=== PATIENT | male | born 1985 | race Caucasian/White ===

== ENCOUNTER 2017-11-23 19:14 | Inpatient (IN) | payer BC ==
[2017-11-23] MEDS ORDERED: Ondansetron 4 MG/2 ML SDV IVPUSH ONE (19:55)
[2017-11-23] MEDS ORDERED: Sodium Chloride 0.9% 10 ML Syringe FLUSH PRN (19:55)
[2017-11-23] MEDS ORDERED: Sodium Chloride 0.9% 1,000 ML IV STA (19:55)
[2017-11-23] MEDS ORDERED: Pantoprazole 40 MG Vial IVPUSH ONE (19:57)
[2017-11-23] MEDS: Pantoprazole 80 MG in Sodium Chloride 0.9% 100 ML IV SCH (20:38)
[2017-11-23] MEDS ORDERED: Sodium Chloride 0.9% 1,000 ML IV SCH (21:45)
--- NOTE | 2017-11-23 22:33 | EDM.PDOC ---
ED HPI GENERAL MEDICAL PROBLEM - General Chief Complaint: Neurological Problem Stated Complaint: LIGHT HEADED Time Seen by Provider: 11/23/17 19:49 Source of Information: Reports: Patient History Limitations: Reports: No Limitations - History of Present Illness INITIAL COMMENTS - FREE TEXT/NARRATIVE: The patient presents with nausea, vomiting, diarrhea and lightheadedness. This all started on Thursday with nausea and vomiting. He then had some dark diarrhea. This continued on and off until today. For the past couple days he has been lightheaded especially when he stands up. He had some abdominal pain today. He has never had a GI bleed before. He is healthy with no history of any medical problems. He has no fever, chills, cough, congestion, runny nose, chest pain or shortness of breath. Onset: Gradual Duration: Day(s): (3) Location: Reports: Abdomen Quality: Reports: Other (cramping) Severity: Mild Improves with: Reports: None Worsens with: Reports: None Associated Symptoms: Reports: Nausea/Vomiting, Weakness. Denies: Confusion, Chest Pain, Cough, Fever/Chills, Headaches, Shortness of Breath - Related Data Allergies Allergy/AdvReac Type Severity Reaction Status Date / Time codeine Allergy Rash Verified 11/23/17 20:29 ED ROS GENERAL - Review of Systems Review Of Systems: See Below Constitutional: Reports: No Symptoms HEENT: Reports: No Symptoms Respiratory: Reports: No Symptoms Cardiovascular: Reports: Lightheadedness. Denies: Chest Pain Endocrine: Reports: No Symptoms GI/Abdominal: Reports: No Symptoms : Reports: No Symptoms Musculoskeletal: Reports: No Symptoms ED EXAM, NEURO - Physical Exam Exam: See Below Exam Limited By: No Limitations General Appearance: Alert, No Apparent Distress Ears: Normal External Exam Nose: Normal Inspection Head Exam: Atraumatic, Normocephalic Neck: Normal Inspection Respiratory/Chest: No Respiratory Distress, Lungs Clear, Normal Breath Sounds Cardiovascular: No Edema, No Murmur, Tachycardia GI/Abdominal: Soft, Non-Tender, No Organomegaly, No Mass Rectal (Males) Exam: Black Stool, Heme + Stool Neurological: Alert, No Motor/Sensory Deficits, Oriented x 3 Course - Vital Signs Last Recorded V/S: Last Vital Signs Temp 98.6 F 11/23/17 19:39 Pulse 120 H 11/23/17 19:39 Resp BP 148/93 H 11/23/17 19:39 Pulse Ox 98 11/23/17 19:39 - Orders/Labs/Meds Orders: Active Orders 24 hr Category Date Time Status Peripheral IV Care [RC] . DIRECTED Care 11/23/17 19:56 Active Abdomen Pelvis w Cont [CT] Stat Exams 11/23/17 19:55 Taken UA W/MICROSCOPIC [URIN] Stat Lab 11/23/17 22:46 Ordered Pantoprazole [ProTONIX IV] 80 mg Med 11/23/17 20:00 Active Sodium Chloride 0.9% [Normal Saline] 100 ml IV Q10H Sodium Chloride 0.9% [Normal Saline] 1,000 ml Med 11/23/17 21:45 Active IV ASDIRECTED Sodium Chloride 0.9% [Saline Flush] Med 11/23/17 19:55 Active 10 ml FLUSH ASDIRECTED PRN ED Antiemetic Medication Reflex [OM.PC] Stat Oth 11/23/17 19:56 Ordered Peripheral IV Insertion Adult [OM.PC] Stat Oth 11/23/17 19:55 Ordered Medication Orders Pantoprazole Sodium 80 mg/ (Sodium Chloride) 100 mls @ 10 mls/hr IV Q10H [facility] Last Admin: 11/23/17 20:38 Dose: 10 mls/hr Sodium Chloride (Normal Saline) 1,000 mls @ 100 mls/hr IV ASDIRECTED JAH Last Admin: 11/23/17 21:39 Dose: 100 mls/hr Sodium Chloride (Saline Flush) 10 ml FLUSH ASDIRECTED PRN PRN Reason: Keep Vein Open Last Admin: 11/23/17 21:06 Dose: 10 ml Labs: Laboratory Tests 11/23/17 11/23/17 11/23/17 Range/Units 20:10 20:10 22:46 WBC 7.72 (4.23-9.07) K/mm3 RBC 2.65 L (4.63-6.08) M/mm3 Hgb 8.7 L (13.7-17.5) gm/L Hct 24.7 L (40.1-51.0) % MCV 93.2 H (79.0-92.2) fl MCH 32.8 H (25.7-32.2) pg MCHC 35.2 (32.2-35.5) g/dl RDW Std Deviation 38.6 (35.1-43.9) fL Plt Count 275 (163-337) K/mm3 MPV 9.3 L (9.4-12.3) fl Neut % (Auto) 55.3 (34.0-67.9) % Lymph % (Auto) 35.5 (21.8-53.1) % [place] % (Auto) 7.5 (5.3-12.2) % Eos % (Auto) 1.4 (0.8-7.0) Baso % (Auto) 0.3 (0.1-1.2) % Neut # (Auto) 4.27 (1.78-5.38) K/mm3 Lymph # (Auto) 2.74 (1.32-3.57) K/mm3 [place] # (Auto) 0.58 (0.30-0.82) K/mm3 Eos # (Auto) 0.11 (0.04-0.54) K/mm3 Baso # (Auto) 0.02 (0.01-0.08) K/mm3 Sodium 139 (136-145) mEq/L Potassium 3.3 L (3.5-5.1) mEq/L Chloride 105 (98-107) mEq/L Carbon Dioxide 25 (21-32) mEq/L Anion Gap 12.3 (5-15) BUN 17 (7-18) mg/dL Creatinine 1.1 (0.7-1.3) mg/dL Est Cr Clr Drug Dosing 102.68 mL/min Estimated GFR (MDRD) > 60 (>60) mL/min BUN/Creatinine Ratio 15.5 (14-18) Glucose 123 H (74-106) mg/dL Calcium 8.4 L (8.5-10.1) mg/dL Total Bilirubin 0.2 (0.2-1.0) mg/dL AST 29 (15-37) U/L ALT 42 (16-63) U/L Alkaline Phosphatase 41 L (46-116) U/L Total Protein 6.3 L (6.4-8.2) g/dl Albumin 3.5 (3.4-5.0) g/dl Globulin 2.8 gm/dL Albumin/Globulin Ratio 1.3 (1-2) Lipase 198 (73-393) U/L Urine Color Light yellow (Yellow) Urine Appearance Clear (Clear) Urine pH 6.0 (5.0-8.0) Ur Specific [place] 1.010 (1.005-1.030) Urine Protein Negative (Negative) Urine Glucose (UA) Negative (Negative) Urine Ketones Negative (Negative) Urine Occult Blood Negative (Negative) Urine Nitrite Negative (Negative) Urine Bilirubin Negative (Negative) Urine Urobilinogen 0.2 (0.2-1.0) Ur Leukocyte Esterase Negative (Negative) Urine RBC 0-5 (0-5) /hpf Urine WBC 0-5 (0-5) /hpf Ur Epithelial Cells Not seen (0-5) /hpf Urine Bacteria Occasional (FEW) /hpf Urine Mucus Not seen (FEW) /hpf Meds: Medications Generic Name Dose Route Start Last Admin Trade Name Freq PRN Reason Stop Dose Admin Pantoprazole Sodium 80 mg/ 100 mls @ 10 mls/hr 11/23/17 20:00 11/23/17 20:38 Sodium Chloride IV 10 mls/hr Q10H JAH Administration Sodium Chloride 1,000 mls @ 100 mls/hr 11/23/17 21:45 11/23/17 21:39 Normal Saline IV 100 mls/hr ASDIRECTED JAH Administration Sodium Chloride 10 ml 11/23/17 19:55 11/23/17 21:06 Saline Flush FLUSH 10 ml ASDIRECTED PRN Administration Keep Vein Open Discontinued Medications Generic Name Dose Route Start Last Admin Trade Name Isidra PRN Reason Stop Dose Admin Sodium Chloride 1,000 mls @ 1,000 mls/hr 11/23/17 19:55 11/23/17 20:25 Normal Saline IV 11/23/17 20:54 1,000 mls/hr .BOLUS STA Administration Ondansetron HCl 4 mg 11/23/17 19:55 11/23/17 20:25 Zofran IVPUSH 11/23/17 19:56 4 mg ONETIME ONE Administration Pantoprazole Sodium 80 mg 11/23/17 19:57 11/23/17 20:27 Protonix Iv IVPUSH 11/23/17 19:58 80 mg .BOLUS ONE Administration - Re-Assessments/Exams Free Text/Narrative Re-Assessment/Exam: 11/23/17 22:32 I ordered an IV NS 1L bolus, zofran 4mg IV, protonix bolus of 80mg IV and a drip at 8mg/hr. I also ordered labs and a CT of his abdomen and pelvis. He had black stool on exam and it was guiac positive. 11/23/17 22:33 His WBC and platelets look good. His Hgb was low at 8.7. His K was low at 3.3. His alk phos was low at 41. His lipase was negative. I am 11/23/17 23:[address] of his abdomen and pelvis is negative. I called Dr Nobles and he agreed to the admission. I also called Dr Vega and he will be on consult. Departure - Departure Time of Disposition: 23:30 Disposition: Admitted As Inpatient 66 Condition: Fair Clinical Impression: Lightheaded, Upper GI bleed Anemia Qualifiers: Anemia type: other cause Other causes of anemia: other cause, not classified Qualified Code(s): D64.89 - Other specified anemias - Discharge Information Referrals: Alexander Hopkins Jr, MD [Primary Care Provider] - Forms: ED Department Discharge - My Orders Last 24 Hours: My Active Orders 11/23/17 19:55 Abdomen Pelvis w Cont [CT] Stat Sodium Chloride 0.9% [Saline Flush] 10 ml FLUSH ASDIRECTED PRN Peripheral IV Insertion Adult [OM.PC] Stat 11/23/17 19:56 Peripheral IV Care [RC] . DIRECTED ED Antiemetic Medication Reflex [OM.PC] Stat 11/23/17 20:00 Pantoprazole [ProTONIX IV] 80 mg Sodium Chloride 0.9% [Normal Saline] 100 ml IV Q10H 11/23/17 21:45 Sodium Chloride 0.9% [Normal Saline] 1,000 ml IV ASDIRECTED 11/23/17 22:46 UA W/MICROSCOPIC [URIN] Stat - Assessment/Plan Last 24 Hours: My Active Orders 11/23/17 19:55 Abdomen Pelvis w Cont [CT] Stat Sodium Chloride 0.9% [Saline Flush] 10 ml FLUSH ASDIRECTED PRN Peripheral IV Insertion Adult [OM.PC] Stat 11/23/17 19:56 Peripheral IV Care [RC] . DIRECTED ED Antiemetic Medication Reflex [OM.PC] Stat 11/23/17 20:00 Pantoprazole [ProTONIX IV] 80 mg Sodium Chloride 0.9% [Normal Saline] 100 ml IV Q10H 11/23/17 21:45 Sodium Chloride 0.9% [Normal Saline] 1,000 ml IV ASDIRECTED 11/23/17 22:46 UA W/MICROSCOPIC [URIN] Stat
--- NOTE | 2017-11-23 23:50 | PCM.HP ---
H&P History of Present Illness - General Date of Service: 11/23/17 Admit Problem/Dx: GI Bleed Source of Information: Patient, Family, Old Records, Provider, RN Notes Reviewed , Significant Other History Limitations: Reports: No Limitations - History of Present Illness Initial Comments - Free Text/Narative: This is a 32 yo healthy young white male no significant past medical hx except of H. pylori infection who comes in for evaluation of nausea, vomiting, diarrhea and lightheadedness/dizziness that started Thursday. He now complaints of dark intermittent watery diarrhea. Patient carries no hx/o GI surgery or chronic GI illness. He was once treated for H. Pylori infection but never had an EGD done in the past. He reports no family hx/o CRC. He admits to taking NSAIDs but only in the past a couple of days. He drinks alcohol but not much. He denies any hx/o rectal bleed in the past. His initial workup in emergency department shows a CBC remarkable for RBC of 2.65, hemoglobin of 8.7, hematocrit of 24.7, MCV of 92.2, MCH of 32.8, MPV of 9.3. His chemistry is significant for potassium of 3.3, glucose of 123, calcium of 8.4, alkaline phosphatase of 41, and total bilirubin is 6.3. His UA is negative for UTI. Head CT scan showed no acute abnormal findings. Patient's stool was positive for guaiac. Dr. Vega was consulted in the emergency department for further evaluation. Patient is being admitted for evaluation acute GI bleed. - Related Data Allergies/Adverse Reactions: Allergies Allergy/AdvReac Type Severity Reaction Status Date / Time codeine Allergy Rash Verified 11/24/17 05:02 Home Medications: Home Meds . [No Known Home Meds] 11/24/17 [History] Past Medical History Musculoskeletal History: Reports: Fracture Other Musculoskeletal History: left hand Social & Family History - Family History Family Medical History: Noncontributory - Tobacco Use Smoking Status *Q: Former Smoker Used Tobacco, but Quit: Yes Month/Year Tobacco Last Used: 32 - Caffeine Use Caffeine Use: Reports: None - Recreational Drug Use Recreational Drug Use: No H&P Review of Systems - Review of Systems: Review Of Systems: ROS reveals no pertinent complaints other than HPI. Exam - Exam Exam: See Below - Vital Signs Vital Signs: Last Vital Signs Temp 37.0 C 11/23/17 19:39 Pulse 120 H 11/23/17 19:39 Resp BP 148/93 H 11/23/17 19:39 Pulse Ox 98 11/23/17 19:39 Weight: 78.018 kg - Exam General: Alert, Oriented, Cooperative. No: Mild Distress HEENT: Conjunctiva Clear, EACs Clear, EOMI, Hearing Intact, Mucosa Moist & Sulphur , Nares Patent, Normal Nasal Septum, Posterior Pharynx Clear, Pupils Equal, Pupils Reactive Neck: Supple, Trachea Midline, +2 Carotid Pulse wo Bruit, Full Range of Motion Lungs: Clear to Auscultation, Normal Respiratory Effort Cardiovascular: Regular Rhythm, Tachycardia GI/Abdominal Exam: Normal Bowel Sounds, Soft, Non-Tender, No Organomegaly, No Distention, No Abnormal Bruit, No Mass (Male) Exam: Deferred Rectal (Males) Exam: Deferred Back Exam: Normal Inspection, Full Range of Motion Extremities: Normal Inspection, Normal Range of Motion, Non-Tender, No Pedal Edema, Normal Capillary Refill Peripheral Pulses: 3+: Posterior Tibial (L), Posterior Tibial (R), Dorsalis Pedis (L), Dorsalis Pedis (R) Skin: Warm, Dry, Intact Neuro Extensive - Mental Status: Oriented x3, Normal Cognition, Memory Intact Neuro Extensive - Motor, Sensory, Reflexes: CN II-XII Intact, Normal Gait Psychiatric: Alert, Normal Affect, Normal Mood - Patient Data Lab Results Last 24 hrs: Laboratory Results - last 24 hr 11/23/17 11/23/17 11/23/17 Range/Units 20:10 20:10 22:46 WBC 7.72 (4.23-9.07) K/mm3 RBC 2.65 L (4.63-6.08) M/mm3 Hgb 8.7 L (13.7-17.5) gm/L Hct 24.7 L (40.1-51.0) % MCV 93.2 H (79.0-92.2) fl MCH 32.8 H (25.7-32.2) pg MCHC 35.2 (32.2-35.5) g/dl RDW Std Deviation 38.6 (35.1-43.9) fL Plt Count 275 (163-337) K/mm3 MPV 9.3 L (9.4-12.3) fl Neut % (Auto) 55.3 (34.0-67.9) % Lymph % (Auto) 35.5 (21.8-53.1) % [place] % (Auto) 7.5 (5.3-12.2) % Eos % (Auto) 1.4 (0.8-7.0) Baso % (Auto) 0.3 (0.1-1.2) % Neut # (Auto) 4.27 (1.78-5.38) K/mm3 Lymph # (Auto) 2.74 (1.32-3.57) K/mm3 [place] # (Auto) 0.58 (0.30-0.82) K/mm3 Eos # (Auto) 0.11 (0.04-0.54) K/mm3 Baso # (Auto) 0.02 (0.01-0.08) K/mm3 Sodium 139 (136-145) mEq/L Potassium 3.3 L (3.5-5.1) mEq/L Chloride 105 (98-107) mEq/L Carbon Dioxide 25 (21-32) mEq/L Anion Gap 12.3 (5-15) BUN 17 (7-18) mg/dL Creatinine 1.1 (0.7-1.3) mg/dL Est Cr Clr Drug Dosing 102.68 mL/min Estimated GFR (MDRD) > 60 (>60) mL/min BUN/Creatinine Ratio 15.5 (14-18) Glucose 123 H (74-106) mg/dL Calcium 8.4 L (8.5-10.1) mg/dL Total Bilirubin 0.2 (0.2-1.0) mg/dL AST 29 (15-37) U/L ALT 42 (16-63) U/L Alkaline Phosphatase 41 L (46-116) U/L Total Protein 6.3 L (6.4-8.2) g/dl Albumin 3.5 (3.4-5.0) g/dl Globulin 2.8 gm/dL Albumin/Globulin Ratio 1.3 (1-2) Lipase 198 (73-393) U/L Urine Color Light yellow (Yellow) Urine Appearance Clear (Clear) Urine pH 6.0 (5.0-8.0) Ur Specific [place] 1.010 (1.005-1.030) Urine Protein Negative (Negative) Urine Glucose (UA) Negative (Negative) Urine Ketones Negative (Negative) Urine Occult Blood Negative (Negative) Urine Nitrite Negative (Negative) Urine Bilirubin Negative (Negative) Urine Urobilinogen 0.2 (0.2-1.0) Ur Leukocyte Esterase Negative (Negative) Urine RBC 0-5 (0-5) /hpf Urine WBC 0-5 (0-5) /hpf Ur Epithelial Cells Not seen (0-5) /hpf Urine Bacteria Occasional (FEW) /hpf Urine Mucus Not seen (FEW) /hpf Result Diagrams: 11/24/17 06:02 11/24/17 06:02 Problem List Initiated/Reviewed/Updated: Yes Orders Last 24hrs: Active Orders 24 hr Category Date Time Status Peripheral IV Care [RC] . DIRECTED Care 11/23/17 19:56 Active Abdomen Pelvis w Cont [CT] Stat Exams 11/23/17 19:55 Taken H.PYLORI ANTIGEN, STOOL [OP] Stat Lab 11/23/17 23:46 Ordered UA W/MICROSCOPIC [URIN] Stat Lab 11/23/17 22:46 Ordered Pantoprazole [ProTONIX IV] 80 mg Med 11/23/17 20:00 Active Sodium Chloride 0.9% [Normal Saline] 100 ml IV Q10H Sodium Chloride 0.9% [Normal Saline] 1,000 ml Med 11/23/17 21:45 Active IV ASDIRECTED Sodium Chloride 0.9% [Saline Flush] Med 11/23/17 19:55 Active 10 ml FLUSH ASDIRECTED PRN ED Antiemetic Medication Reflex [OM.PC] Stat Oth 11/23/17 19:56 Ordered Peripheral IV Insertion Adult [OM.PC] Stat Oth 11/23/17 19:55 Ordered Medication Orders Pantoprazole Sodium 80 mg/ (Sodium Chloride) 100 mls @ 10 mls/hr IV Q10H [facility] Last Admin: 11/23/17 20:38 Dose: 10 mls/hr Sodium Chloride (Normal Saline) 1,000 mls @ 100 mls/hr IV ASDIRECTED JAH Last Admin: 11/23/17 21:39 Dose: 100 mls/hr Sodium Chloride (Saline Flush) 10 ml FLUSH ASDIRECTED PRN PRN Reason: Keep Vein Open Last Admin: 11/23/17 21:06 Dose: 10 ml Assessment/Plan Comment:: Assessment/Plan: Acute: GI Bleed - Hgb 8.7; Hct 24.7 - Had hx/o H.Pylori infection in the past - R/o PUD - Supportive Care and IVF and PPI - Dr. Vega consulted in ED Hypokalemia - K 3.3 - 2/2 GI Loss - Replete and monitor Hx/o H. Pylori Infection - Received outpatient treatment in the past - Will screen for H. Pylori Plan: Admit to [facility] Routine AM Labs Resume home Meds Additional orders as above
[2017-11-24] MEDS ORDERED: Promethazine 12.5 MG in Sodium Chloride 0.9% 50 ML IV PRN (01:02)
[2017-11-24] MEDS ORDERED: LORazepam 2 MG/ML SDV IVPUSH PRN (01:02)
[2017-11-24] MEDS ORDERED: Albuterol/Ipratropium 3.0-0.5 MG/3 ML Neb Soln NEB PRN (01:02)
[2017-11-24] MEDS ORDERED: hydrALAZINE 20 MG/ML SDV IVPUSH PRN (01:02)
[2017-11-24] MEDS ORDERED: Acetaminophen/HYDROcodone 325-5 MG Tab PO PRN (01:02)
[2017-11-24] MEDS ORDERED: Temazepam 15 MG Cap PO PRN (01:02)
[2017-11-24] MEDS ORDERED: LORazepam 2 MG/ML SDV IV PRN (01:02)
[2017-11-24] MEDS ORDERED: Ondansetron 4 MG/2 ML SDV IV PRN (01:02)
[2017-11-24] MEDS ORDERED: Metoprolol Tartrate 5 MG/5 ML SDV IVPUSH PRN (01:02)
[2017-11-24] MEDS ORDERED: HYDROmorphone 0.5 MG/0.5 ML SYRINGE IVPUSH PRN (01:02)
[2017-11-24] MEDS ORDERED: Acetaminophen 325 MG Tab PO PRN (01:02)
[2017-11-24] MEDS: Potassium Chloride 20 MEQ Tab.ER PO SCH ×2 (06:13→09:43)
[2017-11-24] MEDS: Pantoprazole 80 MG in Sodium Chloride 0.9% 100 ML IV SCH ×2 (06:13→18:13)
--- NOTE | 2017-11-24 06:46 | PCM.PN ---
- General Info Date of Service: 11/24/17 Admission Dx/Problem (Free Text): GI Bleed Subjective Update: Follow up Functional Status: Reports: Pain Controlled, Ambulating, Urinating. Denies: New Symptoms - Review of Systems General: Denies: Fever, Weakness, Fatigue, Malaise, Chills HEENT: Reports: No Symptoms Pulmonary: Denies: Shortness of Breath, Pleuritic Chest Pain, Wheezing Cardiovascular: Reports: Lightheadedness. Denies: Chest Pain, Palpitations, Dyspnea on Exertion, Edema Gastrointestinal: Reports: Flatus, Melena. Denies: Abdominal Pain, Constipation , Decreased Appetite, Difficulty Swallowing, Hematochezia, Nausea, Vomiting Genitourinary: Reports: Frequency Musculoskeletal: Reports: No Symptoms Skin: Denies: Cyanosis, Jaundice, Mottled, Pallor, Diaphoresis, Pruritis, Rash Neurological: Denies: Confusion, Dizziness, Seizure, Difficulty Walking, Weakness, Gait Disturbance Psychiatric: Denies: Depression, Anxiety, Agitation, Hallucinations Systems Review Comment:: No significant overnight or acute issues. He gets lightheaded when he gets but otherwise he feels pretty good. He did have dark stool this morning. - Patient Data Vitals - Most Recent: Last Vital Signs Temp 36.7 C 11/24/17 01:01 Pulse 94 11/24/17 01:01 Resp 18 11/24/17 01:01 BP 124/75 11/24/17 01:01 Pulse Ox 98 11/24/17 01:01 Weight - Most Recent: 78.018 kg Lab Results Last 24 Hours: Laboratory Results - last 24 hr 11/23/17 11/23/17 11/23/17 Range/Units 20:10 20:10 22:46 WBC 7.72 (4.23-9.07) K/mm3 RBC 2.65 L (4.63-6.08) M/mm3 Hgb 8.7 L (13.7-17.5) gm/L Hct 24.7 L (40.1-51.0) % MCV 93.2 H (79.0-92.2) fl MCH 32.8 H (25.7-32.2) pg MCHC 35.2 (32.2-35.5) g/dl RDW Std Deviation 38.6 (35.1-43.9) fL Plt Count 275 (163-337) K/mm3 MPV 9.3 L (9.4-12.3) fl Neut % (Auto) 55.3 (34.0-67.9) % Lymph % (Auto) 35.5 (21.8-53.1) % [place] % (Auto) 7.5 (5.3-12.2) % Eos % (Auto) 1.4 (0.8-7.0) Baso % (Auto) 0.3 (0.1-1.2) % Neut # (Auto) 4.27 (1.78-5.38) K/mm3 Lymph # (Auto) 2.74 (1.32-3.57) K/mm3 [place] # (Auto) 0.58 (0.30-0.82) K/mm3 Eos # (Auto) 0.11 (0.04-0.54) K/mm3 Baso # (Auto) 0.02 (0.01-0.08) K/mm3 Sodium 139 (136-145) mEq/L Potassium 3.3 L (3.5-5.1) mEq/L Chloride 105 (98-107) mEq/L Carbon Dioxide 25 (21-32) mEq/L Anion Gap 12.3 (5-15) BUN 17 (7-18) mg/dL Creatinine 1.1 (0.7-1.3) mg/dL Est Cr Clr Drug Dosing 102.68 mL/min Estimated GFR (MDRD) > 60 (>60) mL/min BUN/Creatinine Ratio 15.5 (14-18) Glucose 123 H (74-106) mg/dL Calcium 8.4 L (8.5-10.1) mg/dL Total Bilirubin 0.2 (0.2-1.0) mg/dL AST 29 (15-37) U/L ALT 42 (16-63) U/L Alkaline Phosphatase 41 L (46-116) U/L Total Protein 6.3 L (6.4-8.2) g/dl Albumin 3.5 (3.4-5.0) g/dl Globulin 2.8 gm/dL Albumin/Globulin Ratio 1.3 (1-2) Lipase 198 (73-393) U/L Urine Color Light yellow (Yellow) Urine Appearance Clear (Clear) Urine pH 6.0 (5.0-8.0) Ur Specific [place] 1.010 (1.005-1.030) Urine Protein Negative (Negative) Urine Glucose (UA) Negative (Negative) Urine Ketones Negative (Negative) Urine Occult Blood Negative (Negative) Urine Nitrite Negative (Negative) Urine Bilirubin Negative (Negative) Urine Urobilinogen 0.2 (0.2-1.0) Ur Leukocyte Esterase Negative (Negative) Urine RBC 0-5 (0-5) /hpf Urine WBC 0-5 (0-5) /hpf Ur Epithelial Cells Not seen (0-5) /hpf Urine Bacteria Occasional (FEW) /hpf Urine Mucus Not seen (FEW) /hpf 11/24/17 Range/Units 06:02 WBC 4.63 (4.23-9.07) K/mm3 RBC 2.17 L (4.63-6.08) M/mm3 Hgb 7.0 L* (13.7-17.5) gm/L Hct 20.9 L (40.1-51.0) % MCV 96.3 H (79.0-92.2) fl MCH 32.3 H (25.7-32.2) pg MCHC 33.5 (32.2-35.5) g/dl RDW Std Deviation 40.7 (35.1-43.9) fL Plt Count 204 (163-337) K/mm3 MPV 8.6 L (9.4-12.3) fl Neut % (Auto) 47.3 (34.0-67.9) % Lymph % (Auto) 42.8 (21.8-53.1) % [place] % (Auto) 7.3 (5.3-12.2) % Eos % (Auto) 2.2 (0.8-7.0) Baso % (Auto) 0.2 (0.1-1.2) % Neut # (Auto) 2.19 (1.78-5.38) K/mm3 Lymph # (Auto) 1.98 (1.32-3.57) K/mm3 [place] # (Auto) 0.34 (0.30-0.82) K/mm3 Eos # (Auto) 0.10 (0.04-0.54) K/mm3 Baso # (Auto) 0.01 (0.01-0.08) K/mm3 Sodium (136-145) mEq/L Potassium (3.5-5.1) mEq/L Chloride (98-107) mEq/L Carbon Dioxide (21-32) mEq/L Anion Gap (5-15) BUN (7-18) mg/dL Creatinine (0.7-1.3) mg/dL Est Cr Clr Drug Dosing mL/min Estimated GFR (MDRD) (>60) mL/min BUN/Creatinine Ratio (14-18) Glucose (74-106) mg/dL Calcium (8.5-10.1) mg/dL Total Bilirubin (0.2-1.0) mg/dL AST (15-37) U/L ALT (16-63) U/L Alkaline Phosphatase (46-116) U/L Total Protein (6.4-8.2) g/dl Albumin (3.4-5.0) g/dl Globulin gm/dL Albumin/Globulin Ratio (1-2) Lipase (73-393) U/L Urine Color (Yellow) Urine Appearance (Clear) Urine pH (5.0-8.0) Ur Specific [place] (1.005-1.030) Urine Protein (Negative) Urine Glucose (UA) (Negative) Urine Ketones (Negative) Urine Occult Blood (Negative) Urine Nitrite (Negative) Urine Bilirubin (Negative) Urine Urobilinogen (0.2-1.0) Ur Leukocyte Esterase (Negative) Urine RBC (0-5) /hpf Urine WBC (0-5) /hpf Ur Epithelial Cells (0-5) /hpf Urine Bacteria (FEW) /hpf Urine Mucus (FEW) /hpf Med Orders - Current: Current Medications Acetaminophen (Tylenol) 650 mg PO Q4H PRN PRN Reason: Pain (Mild 1-3)/fever Hydrocodone Bitart/Acetaminophen ([place] 325-5 Mg) 1 tab PO Q4H PRN PRN Reason: Pain (moderate 4-6) Albuterol/Ipratropium (Duoneb 3.0-0.5 Mg/3 Ml) 3 ml NEB Q4H PRN PRN Reason: Shortness Of Breath/wheezing Hydralazine HCl (Apresoline) 20 mg IVPUSH Q4H PRN PRN Reason: Hypertension Hydromorphone HCl (Dilaudid) 0.25 mg IVPUSH Q2H PRN PRN Reason: Pain (severe 7-10) Pantoprazole Sodium 80 mg/ (Sodium Chloride) 100 mls @ 10 mls/hr IV Q10H [facility] Last Admin: 11/24/17 06:13 Dose: 10 mls/hr Promethazine HCl 12.5 mg/ (Sodium Chloride) 50.5 mls @ 100 mls/hr IV Q6H PRN PRN Reason: Nausea/Vomiting Lorazepam (Ativan) 2 mg IVPUSH Q4H PRN PRN Reason: Seizures Lorazepam (Ativan) 1 mg IV Q6H PRN PRN Reason: Nausea/Vomiting Magnesium Sulfate (Pharmacy To Dose - Magnesium Replacement) 1 dose .XX ASDIRECTED [facility] Metoprolol Tartrate (Lopressor) 5 mg IVPUSH Q4H PRN PRN Reason: Tachycardia Ondansetron HCl (Zofran) 4 mg IV Q6H PRN PRN Reason: Nausea/Vomiting Pantoprazole Sodium (Protonix Iv) 40 mg IV Q12HR [facility] Potassium Chloride (Pharmacy To Dose - Potassium Replacement) 1 dose .XX ASDIRECTED [facility] Potassium Chloride (Klor-Con M20) 40 meq PO Q4H [facility] Stop: 11/24/17 09:01 Last Admin: 11/24/17 06:13 Dose: 40 meq Sodium Chloride (Saline Flush) 10 ml FLUSH ASDIRECTED PRN PRN Reason: Keep Vein Open Last Admin: 11/23/17 21:06 Dose: 10 ml Temazepam (Restoril) 15 mg PO BEDTIME PRN PRN Reason: Sleep Discontinued Medications Sodium Chloride (Normal Saline) 1,000 mls @ 1,000 mls/hr IV .BOLUS STA Stop: 11/23/17 20:54 Last Admin: 11/23/17 20:25 Dose: 1,000 mls/hr Sodium Chloride (Normal Saline) 1,000 mls @ 100 mls/hr IV ASDIRECTED [facility] Last Admin: 11/23/17 21:39 Dose: 100 mls/hr Ondansetron HCl (Zofran) 4 mg IVPUSH ONETIME ONE Stop: 11/23/17 19:56 Last Admin: 11/23/17 20:25 Dose: 4 mg Pantoprazole Sodium (Protonix Iv) 80 mg IVPUSH .BOLUS ONE Stop: 11/23/17 19:58 Last Admin: 11/23/17 20:27 Dose: 80 mg - Exam General: Alert, Oriented, Cooperative, No Acute Distress HEENT: Pupils Equal, Pupils Reactive, EOMI, Mucous Membr. Moist/Chicken Neck: Supple, Trachea Midline, No JVD, No Thyromegaly Lungs: Clear to Auscultation, Normal Respiratory Effort Cardiovascular: Regular Rate, Regular Rhythm GI/Abdominal Exam: Normal Bowel Sounds, Soft, Non-Tender, No Organomegaly, No Distention, No Abnormal Bruit, No Mass (Male) Exam: Deferred Back Exam: Normal Inspection, Full Range of Motion Extremities: Normal Inspection, Normal Range of Motion, Non-Tender, No Pedal Edema, Normal Capillary Refill Peripheral Pulses: 3+: Posterior Tibial (L), Posterior Tibial (R), Dorsalis Pedis (L), Dorsalis Pedis (R) Skin: Warm, Dry, Intact Neurological: No New Focal Deficit Psy/Mental Status: Alert, Normal Affect, Normal Mood - Problem List Review Problem List Initiated/Reviewed/Updated: Yes - My Orders Last 24 Hours: My Active Orders 11/23/17 23:46 H.PYLORI ANTIGEN, STOOL [OP] Stat 11/24/17 01:02 Height and Weight [RC] 04 Oxygen Therapy [RC] PRN VTE/DVT Education [RC] DAILY Vital Signs [RC] Q4HR Consult to Physician [CONS] Routine Acetaminophen [Tylenol] 650 mg PO Q4H PRN Acetaminophen/HYDROcodone [[place] 325-5 MG] 1 tab PO Q4H PRN Albuterol/Ipratropium [DuoNeb 3.0-0.5 MG/3 ML] 3 ml NEB Q4H PRN HYDROmorphone [Dilaudid] 0.25 mg IVPUSH Q2H PRN LORazepam [Ativan] 1 mg IV Q6H PRN LORazepam [Ativan] 2 mg IVPUSH Q4H PRN Metoprolol Tartrate [Lopressor] 5 mg IVPUSH Q4H PRN Ondansetron [Zofran] 4 mg IV Q6H PRN Promethazine [Phenergan] 12.5 mg Sodium Chloride 0.9% [Normal Saline] 50 ml IV Q6H Temazepam [Restoril] 15 mg PO BEDTIME PRN hydrALAZINE [Apresoline] 20 mg IVPUSH Q4H PRN Resuscitation Status Routine 11/24/17 01:03 Intake and Output [RC] 04,16 Sequential Compression Device [OM.PC] Per Unit Routine 11/24/17 01:07 Notify Provider Consults [RC] ASDIRECTED RT Aerosol Therapy [RC] ASDIRECTED 11/24/17 01:15 Magnesium Rep Pharmacy to Dose [Pharmacy to Dose - Magnesium Replacement] 1 dose .XX ASDIRECTED Potassium Rep Pharmacy to Dose [Pharmacy to Dose - Potassium Replacement] 1 dose .XX ASDIRECTED 11/24/17 05:00 Potassium Chloride [Klor-Con M20] 40 meq PO Q4H 11/24/17 05:06 Up ad Kavya [RC] ASDIRECTED 11/24/17 06:02 BASIC METABOLIC PANEL,BMP [CHEM] AM C-REACTIVE PROTEIN [CHEM] AM CBC WITH AUTO DIFF [HEME] AM MAGNESIUM [CHEM] AM 11/24/17 09:00 Pantoprazole [ProTONIX IV] 40 mg IV Q12HR 11/24/17 Breakfast Nothing per Oral Now Diet [DIET] - Plan Plan:: Assessment/Plan: Acute: GI Bleed - Hgb 8.7-->7.0 Slow GI bleed vs Hemodilution (received adequate fluids in ED and on the floor overnight); repeat level sometime today - Hct 24.7--> 20.9 - We have no baseline for comparison on his H/H - Had hx/o H.Pylori infection in the past - R/o PUD - Supportive Care and IVF and PPI - Awaiting Dr. Vega's input S/p Hypokalemia - K 3.3--> 3.8 - 2/2 GI Loss - Replete and monitor Hx/o H. Pylori Infection - Received outpatient treatment in the past - Will screen for H. Pylori; he had a bowel movement this AM but Plan: He is otherwise clinically and hemodynamically stable Routine AM Labs NPO until after eval by the surgeon today Will repeat his h/H today; he may need blood transfusion Additional orders as above
--- NOTE | 2017-11-24 08:32 | CT ---
CT abdomen and pelvis Technique: Multiple axial sections were obtained from above the dome of the diaphragm inferiorly through the pubic symphysis. Intravenous and oral contrast was utilized. Delayed images were obtained through the bladder. Comparison: No prior abdominal imaging. Findings: Visualized lung bases are clear. Liver shows no focal parenchymal abnormality. Spleen appears within normal limits. Adrenal glands show no nodule. Gallbladder contains no calcified gallstones. Kidneys show symmetric contrast enhancement without hydronephrosis or mass. Pancreas appears within normal limits. Aorta shows no aneurysmal dilatation. No retroperitoneal adenopathy or mesenteric abnormalities are seen. Appendix is seen which is normal in size. No pelvic mass or adenopathy is seen. Delayed images were obtained which show contrast within the bladder and distal ureters. Bone window settings were reviewed which appear within normal limits for the patient's age. Impression: 1. Nothing acute is seen on CT study of the abdomen and pelvis. Normal findings as described above. Diagnostic code #1 I agree with preliminary report from [facility], finalized at 11/24/17, 12:19 AM Central Time
[2017-11-24] MEDS ORDERED: Pantoprazole 40 MG Vial IV SCH (09:00)
--- NOTE | 2017-11-24 09:54 | PCM.CONS ---
H&P History of Present Illness - General Date of Service: 11/24/17 Admit Problem/Dx: GI Bleed - History of Present Illness Initial Comments - Free Text/Narative: 32-year-old male was treated for H. pylori infection 2 years ago. He did well until 2 days prior to admission when he passed melenic loose stools. This was followed by nausea and emesis but no abdominal pain. The next day he had more melenic loose stool and became lightheaded. He denied shortness of breath as well as palpitations. He has been taking two 200 mg Motrin over the last several days as well for pain but never more than 2 caplets per day. He presented to the emergency room yesterday for evaluation and was found to have hemoglobin of about 8.7. This morning he has no symptoms specifically denying lightheadedness palpitations shortness of breath as well as abdominal pain. He still has occasional melenic stool. He has no past history of GI surgery. This morning after hydration his hemoglobin is 7. He has received no blood transfusions. - Related Data Allergies/Adverse Reactions: Allergies Allergy/AdvReac Type Severity Reaction Status Date / Time codeine Allergy Rash Verified 11/24/17 05:02 Home Medications: Home Meds . [No Known Home Meds] 11/24/17 [History] Past Medical History Gastrointestinal History: Reports: Other (See Below) Other Gastrointestinal History: previous episode of GI bleeding about 2 years ago---diagnosed with a stomach ulcer at that time, but only labwork was done--- no scope was preformed at that time. Musculoskeletal History: Reports: Fracture Other Musculoskeletal History: left hand - Past Surgical History GI Surgical History: Reports: None Musculoskeletal Surgical History: Reports: Other (See Below) Other Musculoskeletal Surgeries/Procedures:: surgery to left arm---plates and screws inserted Social & Family History - Family History Family Medical History: Noncontributory - Tobacco Use Smoking Status *Q: Former Smoker Used Tobacco, but Quit: Yes Month/Year Tobacco Last Used: 32 - Caffeine Use Caffeine Use: Reports: None - Recreational Drug Use Recreational Drug Use: No H&P Review of Systems - Review of Systems: Review Of Systems: ROS reveals no pertinent complaints other than HPI. Exam - Exam Exam: See Below - Vital Signs Vital Signs: Last Vital Signs Temp 37.3 C 11/24/17 08:27 Pulse 91 11/24/17 08:27 Resp 18 11/24/17 08:27 BP 140/72 11/24/17 08:27 Pulse Ox 98 11/24/17 08:27 Weight: 78.018 kg - Exam General: Alert, Oriented, Cooperative HEENT: EOMI, Hearing Intact Neck: Supple, Trachea Midline Lungs: Clear to Auscultation, Normal Respiratory Effort Cardiovascular: Regular Rate, Regular Rhythm, Normal S1, Normal S2 GI/Abdominal Exam: Normal Bowel Sounds, Soft, Non-Tender, No Mass (Male) Exam: Deferred Rectal (Males) Exam: Deferred Back Exam: Full Range of Motion Extremities: Normal Inspection Skin: Warm, Dry, Intact Neuro Extensive - Mental Status: Alert, Oriented x3, Normal Mood/Affect, Normal Cognition Psychiatric: Alert, Normal Affect - Patient Data Lab Results Last 24 hrs: Laboratory Results - last 24 hr 11/23/17 11/23/17 11/23/17 Range/Units 20:10 20:10 22:46 WBC 7.72 (4.23-9.07) K/mm3 RBC 2.65 L (4.63-6.08) M/mm3 Hgb 8.7 L (13.7-17.5) gm/L Hct 24.7 L (40.1-51.0) % MCV 93.2 H (79.0-92.2) fl MCH 32.8 H (25.7-32.2) pg MCHC 35.2 (32.2-35.5) g/dl RDW Std Deviation 38.6 (35.1-43.9) fL Plt Count 275 (163-337) K/mm3 MPV 9.3 L (9.4-12.3) fl Neut % (Auto) 55.3 (34.0-67.9) % Lymph % (Auto) 35.5 (21.8-53.1) % [place] % (Auto) 7.5 (5.3-12.2) % Eos % (Auto) 1.4 (0.8-7.0) Baso % (Auto) 0.3 (0.1-1.2) % Neut # (Auto) 4.27 (1.78-5.38) K/mm3 Lymph # (Auto) 2.74 (1.32-3.57) K/mm3 [place] # (Auto) 0.58 (0.30-0.82) K/mm3 Eos # (Auto) 0.11 (0.04-0.54) K/mm3 Baso # (Auto) 0.02 (0.01-0.08) K/mm3 Manual Slide Review Sodium 139 (136-145) mEq/L Potassium 3.3 L (3.5-5.1) mEq/L Chloride 105 (98-107) mEq/L Carbon Dioxide 25 (21-32) mEq/L Anion Gap 12.3 (5-15) BUN 17 (7-18) mg/dL Creatinine 1.1 (0.7-1.3) mg/dL Est Cr Clr Drug Dosing 102.68 mL/min Estimated GFR (MDRD) > 60 (>60) mL/min BUN/Creatinine Ratio 15.5 (14-18) Glucose 123 H (74-106) mg/dL Calcium 8.4 L (8.5-10.1) mg/dL Magnesium (1.8-2.4) mg/dl Total Bilirubin 0.2 (0.2-1.0) mg/dL AST 29 (15-37) U/L ALT 42 (16-63) U/L Alkaline Phosphatase 41 L (46-116) U/L C-Reactive Protein (<1.0) mg/dL Total Protein 6.3 L (6.4-8.2) g/dl Albumin 3.5 (3.4-5.0) g/dl Globulin 2.8 gm/dL Albumin/Globulin Ratio 1.3 (1-2) Lipase 198 (73-393) U/L Urine Color Light yellow (Yellow) Urine Appearance Clear (Clear) Urine pH 6.0 (5.0-8.0) Ur Specific [place] 1.010 (1.005-1.030) Urine Protein Negative (Negative) Urine Glucose (UA) Negative (Negative) Urine Ketones Negative (Negative) Urine Occult Blood Negative (Negative) Urine Nitrite Negative (Negative) Urine Bilirubin Negative (Negative) Urine Urobilinogen 0.2 (0.2-1.0) Ur Leukocyte Esterase Negative (Negative) Urine RBC 0-5 (0-5) /hpf Urine WBC 0-5 (0-5) /hpf Ur Epithelial Cells Not seen (0-5) /hpf Urine Bacteria Occasional (FEW) /hpf Urine Mucus Not seen (FEW) /hpf 11/24/17 11/24/17 Range/Units 06:02 06:02 WBC 4.63 (4.23-9.07) K/mm3 RBC 2.17 L (4.63-6.08) M/mm3 Hgb 7.0 L* (13.7-17.5) gm/L Hct 20.9 L (40.1-51.0) % MCV 96.3 H (79.0-92.2) fl MCH 32.3 H (25.7-32.2) pg MCHC 33.5 (32.2-35.5) g/dl RDW Std Deviation 40.7 (35.1-43.9) fL Plt Count 204 (163-337) K/mm3 MPV 8.6 L (9.4-12.3) fl Neut % (Auto) 47.3 (34.0-67.9) % Lymph % (Auto) 42.8 (21.8-53.1) % [place] % (Auto) 7.3 (5.3-12.2) % Eos % (Auto) 2.2 (0.8-7.0) Baso % (Auto) 0.2 (0.1-1.2) % Neut # (Auto) 2.19 (1.78-5.38) K/mm3 Lymph # (Auto) 1.98 (1.32-3.57) K/mm3 [place] # (Auto) 0.34 (0.30-0.82) K/mm3 Eos # (Auto) 0.10 (0.04-0.54) K/mm3 Baso # (Auto) 0.01 (0.01-0.08) K/mm3 Manual Slide Review Abnormal smear Sodium 140 (136-145) mEq/L Potassium 3.8 (3.5-5.1) mEq/L Chloride 109 H (98-107) mEq/L Carbon Dioxide 25 (21-32) mEq/L Anion Gap 9.8 (5-15) BUN 11 (7-18) mg/dL Creatinine 1.0 (0.7-1.3) mg/dL Est Cr Clr Drug Dosing 112.95 mL/min Estimated GFR (MDRD) > 60 (>60) mL/min BUN/Creatinine Ratio 11.0 L (14-18) Glucose 94 (74-106) mg/dL Calcium 7.6 L (8.5-10.1) mg/dL Magnesium 1.8 (1.8-2.4) mg/dl Total Bilirubin (0.2-1.0) mg/dL AST (15-37) U/L ALT (16-63) U/L Alkaline Phosphatase (46-116) U/L C-Reactive Protein < 0.2 (<1.0) mg/dL Total Protein (6.4-8.2) g/dl Albumin (3.4-5.0) g/dl Globulin gm/dL Albumin/Globulin Ratio (1-2) Lipase (73-393) U/L Urine Color (Yellow) Urine Appearance (Clear) Urine pH (5.0-8.0) Ur Specific [place] (1.005-1.030) Urine Protein (Negative) Urine Glucose (UA) (Negative) Urine Ketones (Negative) Urine Occult Blood (Negative) Urine Nitrite (Negative) Urine Bilirubin (Negative) Urine Urobilinogen (0.2-1.0) Ur Leukocyte Esterase (Negative) Urine RBC (0-5) /hpf Urine WBC (0-5) /hpf Ur Epithelial Cells (0-5) /hpf Urine Bacteria (FEW) /hpf Urine Mucus (FEW) /hpf Result Diagrams: 11/24/17 06:02 11/24/17 06:02 Consult PN Assessment/Plan Problem List Initiated/Reviewed/Updated: Yes My Orders Last 24 Hours: My Active Orders 11/24/17 09:48 Verify Patient Consent Obtain [RC] ASDIRECTED Schedule Procedure [COMM] Routine Plan: Acute symptomatic anemia possibly related to peptic change of the upper GI tract. This may be recurrent H. pylori infection as well. I've recommended a diagnostic upper endoscopy as a first step. The patient has agreed to proceed after hearing the benefits risks and alternatives.
--- NOTE | 2017-11-24 10:05 | PCM.PREANE ---
Preanesthetic Assessment - Anesthesia/Transfusion/Family Hx Anesthesia History: Prior Anesthesia Without Reaction Family History of Anesthesia Reaction: No Transfusion History: No Prior Transfusion(s) - Review of Systems General: Fatigue Pulmonary: No Symptoms Cardiovascular: No Symptoms Gastrointestinal: No Symptoms Neurological: No Symptoms Other: Reports: None - Physical Assessment NPO Status Date: 11/23/17 NPO Status Time: 00:00 Pulse: 91 O2 Sat by Pulse Oximetry: 98 Respiratory Rate: 18 Blood Pressure: 140/72 Temperature: 37.3 C Vital Signs: Last Vital Signs Temp 37.3 C 11/24/17 08:27 Pulse 91 11/24/17 08:27 Resp 18 11/24/17 08:27 BP 140/72 11/24/17 08:27 Pulse Ox 98 11/24/17 08:27 Height: 1.8 m Weight: 78.018 kg Mental Status: Alert & Oriented x3 Airway Class: Mallampati = 1 Dentition: Reports: Normal Dentition Thyro-Mental Finger Breadths: 3 Mouth Opening Finger Breadths: 3 ROM/Head Extension: Full Lungs: Clear to Auscultation, Normal Respiratory Effort Cardiovascular: Regular Rate, Regular Rhythm, No Murmurs - Lab Values: Laboratory Last Values WBC 4.63 K/mm3 (4.23-9.07) 11/24/17 06:02 RBC 2.17 M/mm3 (4.63-6.08) L 11/24/17 06:02 Hgb 7.0 gm/L (13.7-17.5) L* 11/24/17 06:02 Hct 20.9 % (40.1-51.0) L 11/24/17 06:02 MCV 96.3 fl (79.0-92.2) H 11/24/17 06:02 MCH 32.3 pg (25.7-32.2) H 11/24/17 06:02 MCHC 33.5 g/dl (32.2-35.5) 11/24/17 06:02 RDW Std Deviation 40.7 fL (35.1-43.9) 11/24/17 06:02 Plt Count 204 K/mm3 (163-337) 11/24/17 06:02 MPV 8.6 fl (9.4-12.3) L 11/24/17 06:02 Neut % (Auto) 47.3 % (34.0-67.9) 11/24/17 06:02 Lymph % (Auto) 42.8 % (21.8-53.1) 11/24/17 06:02 [place] % (Auto) 7.3 % (5.3-12.2) 11/24/17 06:02 Eos % (Auto) 2.2 (0.8-7.0) 11/24/17 06:02 Baso % (Auto) 0.2 % (0.1-1.2) 11/24/17 06:02 Neut # (Auto) 2.19 K/mm3 (1.78-5.38) 11/24/17 06:02 Lymph # (Auto) 1.98 K/mm3 (1.32-3.57) 11/24/17 06:02 [place] # (Auto) 0.34 K/mm3 (0.30-0.82) 11/24/17 06:02 Eos # (Auto) 0.10 K/mm3 (0.04-0.54) 11/24/17 06:02 Baso # (Auto) 0.01 K/mm3 (0.01-0.08) 11/24/17 06:02 Manual Slide Review Abnormal smear 11/24/17 06:02 Sodium 140 mEq/L (136-145) 11/24/17 06:02 Potassium 3.8 mEq/L (3.5-5.1) 11/24/17 06:02 Chloride 109 mEq/L (98-107) H 11/24/17 06:02 Carbon Dioxide 25 mEq/L (21-32) 11/24/17 06:02 Anion Gap 9.8 (5-15) 11/24/17 06:02 BUN 11 mg/dL (7-18) 11/24/17 06:02 Creatinine 1.0 mg/dL (0.7-1.3) 11/24/17 06:02 Est Cr Clr Drug Dosing 112.95 mL/min 11/24/17 06:02 Estimated GFR (MDRD) > 60 mL/min (>60) 11/24/17 06:02 BUN/Creatinine Ratio 11.0 (14-18) L 11/24/17 06:02 Glucose 94 mg/dL (74-106) 11/24/17 06:02 Calcium 7.6 mg/dL (8.5-10.1) L 11/24/17 06:02 Magnesium 1.8 mg/dl (1.8-2.4) 11/24/17 06:02 Total Bilirubin 0.2 mg/dL (0.2-1.0) 11/23/17 20:10 AST 29 U/L (15-37) 11/23/17 20:10 ALT 42 U/L (16-63) 11/23/17 20:10 Alkaline Phosphatase 41 U/L (46-116) L 11/23/17 20:10 C-Reactive Protein < 0.2 mg/dL (<1.0) 11/24/17 06:02 Total Protein 6.3 g/dl (6.4-8.2) L 11/23/17 20:10 Albumin 3.5 g/dl (3.4-5.0) 11/23/17 20:10 Globulin 2.8 gm/dL 11/23/17 20:10 Albumin/Globulin Ratio 1.3 (1-2) 11/23/17 20:10 Lipase 198 U/L (73-393) 11/23/17 20:10 Urine Color Light yellow (Yellow) 11/23/17 22:46 Urine Appearance Clear (Clear) 11/23/17 22:46 Urine pH 6.0 (5.0-8.0) 11/23/17 22:46 Ur Specific [place] 1.010 (1.005-1.030) 11/23/17 22:46 Urine Protein Negative (Negative) 11/23/17 22:46 Urine Glucose (UA) Negative (Negative) 11/23/17 22:46 Urine Ketones Negative (Negative) 11/23/17 22:46 Urine Occult Blood Negative (Negative) 11/23/17 22:46 Urine Nitrite Negative (Negative) 11/23/17 22:46 Urine Bilirubin Negative (Negative) 11/23/17 22:46 Urine Urobilinogen 0.2 (0.2-1.0) 11/23/17 22:46 Ur Leukocyte Esterase Negative (Negative) 11/23/17 22:46 Urine RBC 0-5 /hpf (0-5) 11/23/17 22:46 Urine WBC 0-5 /hpf (0-5) 11/23/17 22:46 Ur Epithelial Cells Not seen /hpf (0-5) 11/23/17 22:46 Urine Bacteria Occasional /hpf (FEW) 11/23/17 22:46 Urine Mucus Not seen /hpf (FEW) 11/23/17 22:46 - Allergies Allergies/Adverse Reactions: Allergies Allergy/AdvReac Type Severity Reaction Status Date / Time codeine Allergy Rash Verified 11/24/17 05:02 - Blood Blood Available: No Product(s) Available: None - Anesthesia Plan Pre-Op Medication Ordered: None - Acknowledgements Anesthesia Type Planned: MAC Pt an Appropriate Candidate for the Planned Anesthesia: Yes Alternatives and Risks of Anesthesia Discussed w Pt/Guardian: Yes Pt/Guardian Understands and Agrees with Anesthesia Plan: Yes PreAnesthesia Questionnaire Gastrointestinal History: Reports: GERD, Other (See Below) Other Gastrointestinal History: previous episode of GI bleeding about 2 years ago---diagnosed with a stomach ulcer at that time, but only labwork was done--- no scope was preformed at that time. Musculoskeletal History: Reports: Fracture Other Musculoskeletal History: left hand - Past Surgical History GI Surgical History: Reports: None Musculoskeletal Surgical History: Reports: Other (See Below) Other Musculoskeletal Surgeries/Procedures:: surgery to left arm---plates and screws inserted - SUBSTANCE USE Smoking Status *Q: Former Smoker Tobacco Use Within Last Twelve Months: Cigarettes Second Hand Smoke Exposure: No Days Per Week of Alcohol Use: 1 Number of Drinks Per Day: 1 Total Drinks Per Week: 1 Recreational Drug Use History: No - HOME MEDS Home Medications: Home Meds . [No Known Home Meds] 11/24/17 [History] - CURRENT (IN HOUSE) MEDS Current Meds: Current Medications Acetaminophen (Tylenol) 650 mg PO Q4H PRN PRN Reason: Pain (Mild 1-3)/fever Hydrocodone Bitart/Acetaminophen ([place] 325-5 Mg) 1 tab PO Q4H PRN PRN Reason: Pain (moderate 4-6) Albuterol/Ipratropium (Duoneb 3.0-0.5 Mg/3 Ml) 3 ml NEB Q4H PRN PRN Reason: Shortness Of Breath/wheezing Hydralazine HCl (Apresoline) 20 mg IVPUSH Q4H PRN PRN Reason: Hypertension Hydromorphone HCl (Dilaudid) 0.25 mg IVPUSH Q2H PRN PRN Reason: Pain (severe 7-10) Pantoprazole Sodium 80 mg/ (Sodium Chloride) 100 mls @ 10 mls/hr IV Q10H [facility] Last Admin: 11/24/17 06:13 Dose: 10 mls/hr Promethazine HCl 12.5 mg/ (Sodium Chloride) 50.5 mls @ 100 mls/hr IV Q6H PRN PRN Reason: Nausea/Vomiting Lorazepam (Ativan) 2 mg IVPUSH Q4H PRN PRN Reason: Seizures Lorazepam (Ativan) 1 mg IV Q6H PRN PRN Reason: Nausea/Vomiting Magnesium Sulfate (Pharmacy To Dose - Magnesium Replacement) 0 dose .XX ASDIRECTED PRN PRN Reason: RX TO WATCH MAG LEVELS Metoprolol Tartrate (Lopressor) 5 mg IVPUSH Q4H PRN PRN Reason: Tachycardia Ondansetron HCl (Zofran) 4 mg IV Q6H PRN PRN Reason: Nausea/Vomiting Pantoprazole Sodium (Protonix Iv) 40 mg IV Q12HR [facility] Last Admin: 11/24/17 09:43 Dose: Not Given Potassium Chloride (Pharmacy To Dose - Potassium Replacement) 0 dose .XX ASDIRECTED PRN PRN Reason: RX TO WATCH K LEVELS Sodium Chloride (Saline Flush) 10 ml FLUSH ASDIRECTED PRN PRN Reason: Keep Vein Open Last Admin: 11/23/17 21:06 Dose: 10 ml Temazepam (Restoril) 15 mg PO BEDTIME PRN PRN Reason: Sleep Discontinued Medications Sodium Chloride (Normal Saline) 1,000 mls @ 1,000 mls/hr IV .BOLUS STA Stop: 11/23/17 20:54 Last Admin: 11/23/17 20:25 Dose: 1,000 mls/hr Sodium Chloride (Normal Saline) 1,000 mls @ 100 mls/hr IV ASDIRECTED [facility] Last Admin: 11/23/17 21:39 Dose: 100 mls/hr Ondansetron HCl (Zofran) 4 mg IVPUSH ONETIME ONE Stop: 11/23/17 19:56 Last Admin: 11/23/17 20:25 Dose: 4 mg Pantoprazole Sodium (Protonix Iv) 80 mg IVPUSH .BOLUS ONE Stop: 11/23/17 19:58 Last Admin: 11/23/17 20:27 Dose: 80 mg Potassium Chloride (Klor-Con M20) 40 meq PO Q4H [facility] Stop: 11/24/17 09:01 Last Admin: 11/24/17 09:43 Dose: Not Given
[2017-11-24] MEDS ORDERED: Propofol 200 MG/20 ML SDV ONE (10:19)
[2017-11-24] MEDS ORDERED: Lidocaine 1% 4 ML ONE (10:20)
[2017-11-24] MEDS ORDERED: Midazolam 1 MG/ML 2 ML SDV ONE (10:20)
[2017-11-24] MEDS ORDERED: Pantoprazole 40 MG Tab.CR PO SCH (11:18)
--- NOTE | 2017-11-24 11:30 | PCM48HPAN ---
Post Anesthesia Note - EVALUATION WITHIN 48HRS OF ANESTHETIC Vital Signs in Normal Range: Yes Patient Participated in Evaluation: Yes Respiratory Function Stable: Yes Airway Patent: Yes Cardiovascular Function Stable: Yes Hydration Status Stable: Yes Pain Control Satisfactory: Yes Nausea and Vomiting Control Satisfactory: Yes Mental Status Recovered: Yes Pulse Rate: 88 SaO2: 98 Resp Rate: 16 Temperature: 36.3 C Blood Pressure: 105/49 - COMMENTS/OBSERVATIONS Free Text/Narrative:: no anesthesia complications noted
--- NOTE | 2017-11-24 11:33 | PCM.OPNOTE ---
- General Post-Op/Procedure Note Date of Surgery/Procedure: 11/24/17 Operative Procedure(s): Diagnostic Esophagogastroduodenoscopy with gastric biopsy 2 Findings: Patchy areas of gastritis with no gastric ulcers seen. Posterior duodenal ulcer approximately 1 cm in diameter containing exudate within its base and no visible vessel . There were also patchy areas of duodenitis. There was no luminal blood within the stomach or duodenum. There were no mass lesions. And there were no Dayanara-Mae tear seen. Pre Op Diagnosis: Acute symptomatic blood loss anemia with melenic stools Post-Op Diagnosis: 1. Posterior duodenal ulcer. 2. Duodenitis. 3. Gastritis Anesthesia Technique: MAC, Moderate Sedation Primary Surgeon: Simone Vega Pathology: 2 gastric biopsies EBL in mLs: 0 Complications: None Condition: Good Free Text/Narrative:: After adequate IV sedation and analgesia was obtained with monitoring the patient was placed on his left side. Through a bite-block lubricated upper endoscope was inserted into the esophagus and advanced to the stomach. Additional air was given here. There was no blood acute or chronic within the lumen of the stomach. The scope was advanced towards the antrum and then through the pylorus to the second part of the duodenum. The second part of the duodenum was endoscopically normal and had no inflammatory changes. The first part of the duodenum had a 1 to 1.5 cm ulcer crater located in its posterior aspect. There was no blood loss within the duodenum. The ulcer had no visible vessel. There were patchy areas of duodenitis throughout the first part of duodenum. The antrum was unremarkable. In the retroflexed view there were patchy areas of erythema consistent with gastritis visualized. There was no hiatal hernia gastric varices or Dayanara-Mae tears. 2 biopsies of the erythematous areas in the stomach were taken for histologic evaluation. I then withdrew the scope to the GE junction which was normal. There was no Dayanara- Mae tears or inflammatory changes seen in this area. The body of the esophagus was grossly endoscopically normal. On extubation the vocal cords were briefly visualized and were unremarkable. Edging Machine Catcher photographs were taken for the patient and for the medical record.
[2017-11-24] MEDS ORDERED: Sucralfate Suspension 1 GM/10 ML Cup PO ONE (11:40)
[2017-11-24] MEDS ORDERED: Sucralfate 1 GM Tab PO SCH (17:00)
--- NOTE | 2017-11-24 17:15 | PCM.DCSUM1 ---
Discharge Summary - Hospital Course Brief History: This is a 32 yo healthy young white male no significant past medical hx except of H. pylori infection who comes in for evaluation of nausea, vomiting, diarrhea and lightheadedness/dizziness that started Thursday. He now complaints of dark intermittent watery diarrhea. Patient carries no hx/o GI surgery or chronic GI illness. He was once treated for H. Pylori infection but never had an EGD done in the past. He reports no family hx/o CRC. He admits to taking NSAIDs but only in the past a couple of days. He drinks alcohol but not much. He denies any hx/o rectal bleed in the past. His initial workup in emergency department shows a CBC remarkable for RBC of 2.65, hemoglobin of 8.7, hematocrit of 24.7, MCV of 92.2, MCH of 32.8, MPV of 9.3. His chemistry is significant for potassium of 3.3, glucose of 123, calcium of 8.4, alkaline phosphatase of 41, and total bilirubin is 6.3. His UA is negative for UTI. Head CT scan showed no acute abnormal findings. Patient's stool was positive for guaiac. Dr. Vega was consulted in the emergency department for further evaluation. - Discharge Data Discharge Date: 11/24/17 Discharge Disposition: Home, Self-Care 01 Condition: Good - Discharge Diagnosis/Problem(s) (1) PUD (peptic ulcer disease) SNOMED Code(s): 05973727 ICD Code: K27.9 - PEPTIC ULC, SITE UNSP, UNSP AC OR CHR, W/O HEMOR OR PERF Status: Acute (2) Gastritis and duodenitis SNOMED Code(s): 583601137 ICD Code: K29.90 - GASTRODUODENITIS, UNSPECIFIED, WITHOUT BLEEDING Status: Acute (3) Anemia SNOMED Code(s): 956933682 ICD Code: D64.9 - ANEMIA, UNSPECIFIED Status: Acute Qualifiers: Anemia type: other cause Other causes of anemia: other cause, not classified Qualified Code(s): D64.89 - Other specified anemias (4) Lightheaded SNOMED Code(s): 579119380 ICD Code: R42 - DIZZINESS AND GIDDINESS Status: Resolved (5) Upper GI bleed SNOMED Code(s): 46174097 ICD Code: K92.2 - GASTROINTESTINAL HEMORRHAGE, UNSPECIFIED Status: Resolved (6) Helicobacter pylori (H. pylori) infection SNOMED Code(s): 815130766 ICD Code: A04.8 - OTHER SPECIFIED BACTERIAL INTESTINAL INFECTIONS Status: Acute - Patient Summary/Data Operative Procedure(s) Performed: Diagnostic Esophagogastroduodenoscopy with gastric biopsy 2 Complications: None Consults: Consultations 11/24/17 01:02 Consult to Physician [CONS] Routine 11/24/17 11:48 Consult to Dietary [Consult to Access Liaison] [CONS] Routine Labs Pending at D/C: None Recommended Follow-up Testing/Procedures: None Planned Operative Procedure(s) after DC: None Hospital Course: Patient was primarily admitted for evaluation of acute GI bleed. He carried hx/ o H. pylori infection in the past. All diagnostic work up and endoscopic procedure revealed H. Pylori and PUD with about a centimeter doudenal ulcer. Patient tolerated the procedure well w/o any complications. His most recent Hgb level was 8.4 prior to discharge. His hospital course was uncomplicated. He was discharged with PPI based triple therapy for 14 days for his H. Pylori infection. He was advised to continue his PPI and Carafate with changes noted on his d/c instructions to complete a total 30 day course of treatment. He was advised to follow up with [facility] thereafter. Patient was informed to follow diet instructions and to call his PCP for any questions or concerns after discharge. The patient and his fiancee at bedside expressed understanding and in agreement with the plans as discussed above. All questions were answered. - Patient Instructions Diet: Usual Diet as Tolerated Activity: As Tolerated Driving: May Drive Today Showering/Bathing: May Shower Notify Provider of: Fever, Increased Pain, Nausea and/or Vomiting Other/Special Instructions: - Please take all new medications as directed. - Resume all routine home activities w/o any restrictions. - Follow Access Liaison's diet/food instructions. - - Follow up or call your family doctor for any questions or concerns after discharge. - Follow up with your PCP in 2 weeks. - Come back or seek immediate care should your symptoms persist or get worse - Discharge Plan Prescriptions/Med Rec: Amoxicillin 1,000 mg PO ASDIRECTED #56 tablet Clarithromycin 500 mg PO BID #28 tablet Pantoprazole Sodium 40 mg PO BID #30 tablet. Sucralfate [Carafate] 1 gm PO QIDACANDBED #120 cup Home Medications: Home Meds Amoxicillin 1,000 mg PO ASDIRECTED #56 tablet 11/24/17 [Rx] Clarithromycin 500 mg PO BID #28 tablet 11/24/17 [Rx] Pantoprazole Sodium 40 mg PO BID #30 tablet. 11/24/17 [Rx] Sucralfate [Carafate] 1 gm PO QIDACANDBED #120 cup 11/24/17 [Rx] Patient Handouts: Gastritis, Adult, [id number], Upper Gastrointestinal Bleeding, Helicobacter Pylori Infection, Anemia, Peptic Ulcer, [id number], Gastrointestinal Bleeding, [id number] Referrals: Hardy Magana [Physician] - 12/01/17 3:00 pm (Please check in for your appointment at 230pm.) - Discharge Summary/Plan Comment DC Time >30 min.: Yes (45 mins) Discharge Summary/Plan Comment: Discharge to Home - General Info Date of Service: 11/24/17 Admission Dx/Problem (Free Text: GI Bleed Subjective Update: Follow up Functional Status: Reports: Pain Controlled, Tolerating Diet, Ambulating, Urinating - Review of Systems General: Denies: Fever, Weakness, Fatigue, Malaise, Chills HEENT: Reports: No Symptoms Pulmonary: Denies: Shortness of Breath, Pleuritic Chest Pain, Cough, Wheezing Cardiovascular: Denies: Chest Pain, Palpitations, Dyspnea on Exertion, Lightheadedness Gastrointestinal: Denies: Abdominal Pain, Decreased Appetite, Diarrhea, Difficulty Swallowing, Hematochezia, Nausea, Vomiting Genitourinary: Reports: No Symptoms Musculoskeletal: Reports: No Symptoms Skin: Denies: Cyanosis, Jaundice, Mottled, Pallor, Diaphoresis Neurological: Denies: Confusion, Dizziness, Headache, Syncope, Difficulty Walking, Weakness, Gait Disturbance Psychiatric: Denies: Depression, Mood Lability, Anxiety, Agitation, Hallucinations - Patient Data Vitals - Most Recent: Last Vital Signs Temp 36.3 C 11/24/17 11:30 Pulse 95 11/24/17 15:01 Resp 16 11/24/17 11:47 BP 124/72 11/24/17 15:01 Pulse Ox 100 11/24/17 15:01 Weight - Most Recent: 78.018 kg I&O - Last 24 hours: Intake & Output 11/24/17 11/24/17 11/24/17 06:59 14:59 22:59 Intake Total 250 Output Total 1600 Balance -1350 Lab Results - Last 24 hrs: Laboratory Results - last 24 hr 11/23/17 11/23/17 11/23/17 Range/Units 20:10 20:10 22:46 WBC 7.72 (4.23-9.07) K/mm3 RBC 2.65 L (4.63-6.08) M/mm3 Hgb 8.7 L (13.7-17.5) gm/L Hct 24.7 L (40.1-51.0) % MCV 93.2 H (79.0-92.2) fl MCH 32.8 H (25.7-32.2) pg MCHC 35.2 (32.2-35.5) g/dl RDW Std Deviation 38.6 (35.1-43.9) fL Plt Count 275 (163-337) K/mm3 MPV 9.3 L (9.4-12.3) fl Neut % (Auto) 55.3 (34.0-67.9) % Lymph % (Auto) 35.5 (21.8-53.1) % Lipscomb % (Auto) 7.5 (5.3-12.2) % Eos % (Auto) 1.4 (0.8-7.0) Baso % (Auto) 0.3 (0.1-1.2) % Neut # (Auto) 4.27 (1.78-5.38) K/mm3 Lymph # (Auto) 2.74 (1.32-3.57) K/mm3 Lipscomb # (Auto) 0.58 (0.30-0.82) K/mm3 Eos # (Auto) 0.11 (0.04-0.54) K/mm3 Baso # (Auto) 0.02 (0.01-0.08) K/mm3 Manual Slide Review Sodium 139 (136-145) mEq/L Potassium 3.3 L (3.5-5.1) mEq/L Chloride 105 (98-107) mEq/L Carbon Dioxide 25 (21-32) mEq/L Anion Gap 12.3 (5-15) BUN 17 (7-18) mg/dL Creatinine 1.1 (0.7-1.3) mg/dL Est Cr Clr Drug Dosing 102.68 mL/min Estimated GFR (MDRD) > 60 (>60) mL/min BUN/Creatinine Ratio 15.5 (14-18) Glucose 123 H (74-106) mg/dL Calcium 8.4 L (8.5-10.1) mg/dL Magnesium (1.8-2.4) mg/dl Total Bilirubin 0.2 (0.2-1.0) mg/dL AST 29 (15-37) U/L ALT 42 (16-63) U/L Alkaline Phosphatase 41 L (46-116) U/L C-Reactive Protein (<1.0) mg/dL Total Protein 6.3 L (6.4-8.2) g/dl Albumin 3.5 (3.4-5.0) g/dl Globulin 2.8 gm/dL Albumin/Globulin Ratio 1.3 (1-2) Lipase 198 (73-393) U/L Urine Color Light yellow (Yellow) Urine Appearance Clear (Clear) Urine pH 6.0 (5.0-8.0) Ur Specific Advance 1.010 (1.005-1.030) Urine Protein Negative (Negative) Urine Glucose (UA) Negative (Negative) Urine Ketones Negative (Negative) Urine Occult Blood Negative (Negative) Urine Nitrite Negative (Negative) Urine Bilirubin Negative (Negative) Urine Urobilinogen 0.2 (0.2-1.0) Ur Leukocyte Esterase Negative (Negative) Urine RBC 0-5 (0-5) /hpf Urine WBC 0-5 (0-5) /hpf Ur Epithelial Cells Not seen (0-5) /hpf Urine Bacteria Occasional (FEW) /hpf Urine Mucus Not seen (FEW) /hpf H. pylori IgG Antibody (NEGATIVE) 11/24/17 11/24/17 11/24/17 Range/Units 06:02 06:02 06:02 WBC 4.63 (4.23-9.07) K/mm3 RBC 2.17 L (4.63-6.08) M/mm3 Hgb 7.0 L* (13.7-17.5) gm/L Hct 20.9 L (40.1-51.0) % MCV 96.3 H (79.0-92.2) fl MCH 32.3 H (25.7-32.2) pg MCHC 33.5 (32.2-35.5) g/dl RDW Std Deviation 40.7 (35.1-43.9) fL Plt Count 204 (163-337) K/mm3 MPV 8.6 L (9.4-12.3) fl Neut % (Auto) 47.3 (34.0-67.9) % Lymph % (Auto) 42.8 (21.8-53.1) % Lipscomb % (Auto) 7.3 (5.3-12.2) % Eos % (Auto) 2.2 (0.8-7.0) Baso % (Auto) 0.2 (0.1-1.2) % Neut # (Auto) 2.19 (1.78-5.38) K/mm3 Lymph # (Auto) 1.98 (1.32-3.57) K/mm3 Lipscomb # (Auto) 0.34 (0.30-0.82) K/mm3 Eos # (Auto) 0.10 (0.04-0.54) K/mm3 Baso # (Auto) 0.01 (0.01-0.08) K/mm3 Manual Slide Review Abnormal smear Sodium 140 (136-145) mEq/L Potassium 3.8 (3.5-5.1) mEq/L Chloride 109 H (98-107) mEq/L Carbon Dioxide 25 (21-32) mEq/L Anion Gap 9.8 (5-15) BUN 11 (7-18) mg/dL Creatinine 1.0 (0.7-1.3) mg/dL Est Cr Clr Drug Dosing 112.95 mL/min Estimated GFR (MDRD) > 60 (>60) mL/min BUN/Creatinine Ratio 11.0 L (14-18) Glucose 94 (74-106) mg/dL Calcium 7.6 L (8.5-10.1) mg/dL Magnesium 1.8 (1.8-2.4) mg/dl Total Bilirubin (0.2-1.0) mg/dL AST (15-37) U/L ALT (16-63) U/L Alkaline Phosphatase (46-116) U/L C-Reactive Protein < 0.2 (<1.0) mg/dL Total Protein (6.4-8.2) g/dl Albumin (3.4-5.0) g/dl Globulin gm/dL Albumin/Globulin Ratio (1-2) Lipase (73-393) U/L Urine Color (Yellow) Urine Appearance (Clear) Urine pH (5.0-8.0) Ur Specific Advance (1.005-1.030) Urine Protein (Negative) Urine Glucose (UA) (Negative) Urine Ketones (Negative) Urine Occult Blood (Negative) Urine Nitrite (Negative) Urine Bilirubin (Negative) Urine Urobilinogen (0.2-1.0) Ur Leukocyte Esterase (Negative) Urine RBC (0-5) /hpf Urine WBC (0-5) /hpf Ur Epithelial Cells (0-5) /hpf Urine Bacteria (FEW) /hpf Urine Mucus (FEW) /hpf H. pylori IgG Antibody Positive H (NEGATIVE) 11/24/17 Range/Units 15:59 WBC (4.23-9.07) K/mm3 RBC (4.63-6.08) M/mm3 Hgb 8.4 L (13.7-17.5) gm/L Hct 24.8 L (40.1-51.0) % MCV (79.0-92.2) fl MCH (25.7-32.2) pg MCHC (32.2-35.5) g/dl RDW Std Deviation (35.1-43.9) fL Plt Count (163-337) K/mm3 MPV (9.4-12.3) fl Neut % (Auto) (34.0-67.9) % Lymph % (Auto) (21.8-53.1) % Lipscomb % (Auto) (5.3-12.2) % Eos % (Auto) (0.8-7.0) Baso % (Auto) (0.1-1.2) % Neut # (Auto) (1.78-5.38) K/mm3 Lymph # (Auto) (1.32-3.57) K/mm3 Lipscomb # (Auto) (0.30-0.82) K/mm3 Eos # (Auto) (0.04-0.54) K/mm3 Baso # (Auto) (0.01-0.08) K/mm3 Manual Slide Review Sodium (136-145) mEq/L Potassium (3.5-5.1) mEq/L Chloride (98-107) mEq/L Carbon Dioxide (21-32) mEq/L Anion Gap (5-15) BUN (7-18) mg/dL Creatinine (0.7-1.3) mg/dL Est Cr Clr Drug Dosing mL/min Estimated GFR (MDRD) (>60) mL/min BUN/Creatinine Ratio (14-18) Glucose (74-106) mg/dL Calcium (8.5-10.1) mg/dL Magnesium (1.8-2.4) mg/dl Total Bilirubin (0.2-1.0) mg/dL AST (15-37) U/L ALT (16-63) U/L Alkaline Phosphatase (46-116) U/L C-Reactive Protein (<1.0) mg/dL Total Protein (6.4-8.2) g/dl Albumin (3.4-5.0) g/dl Globulin gm/dL Albumin/Globulin Ratio (1-2) Lipase (73-393) U/L Urine Color (Yellow) Urine Appearance (Clear) Urine pH (5.0-8.0) Ur Specific Advance (1.005-1.030) Urine Protein (Negative) Urine Glucose (UA) (Negative) Urine Ketones (Negative) Urine Occult Blood (Negative) Urine Nitrite (Negative) Urine Bilirubin (Negative) Urine Urobilinogen (0.2-1.0) Ur Leukocyte Esterase (Negative) Urine RBC (0-5) /hpf Urine WBC (0-5) /hpf Ur Epithelial Cells (0-5) /hpf Urine Bacteria (FEW) /hpf Urine Mucus (FEW) /hpf H. pylori IgG Antibody (NEGATIVE) Med Orders - Current: Current Medications Acetaminophen (Tylenol) 650 mg PO Q4H PRN PRN Reason: Pain (Mild 1-3)/fever Hydrocodone Bitart/Acetaminophen (Milam 325-5 Mg) 1 tab PO Q4H PRN PRN Reason: Pain (moderate 4-6) Albuterol/Ipratropium (Duoneb 3.0-0.5 Mg/3 Ml) 3 ml NEB Q4H PRN PRN Reason: Shortness Of Breath/wheezing Hydralazine HCl (Apresoline) 20 mg IVPUSH Q4H PRN PRN Reason: Hypertension Hydromorphone HCl (Dilaudid) 0.25 mg IVPUSH Q2H PRN PRN Reason: Pain (severe 7-10) Pantoprazole Sodium 80 mg/ (Sodium Chloride) 100 mls @ 10 mls/hr IV Q10H [facility] Stop: 11/24/17 18:00 Last Admin: 11/24/17 06:13 Dose: 10 mls/hr Promethazine HCl 12.5 mg/ (Sodium Chloride) 50.5 mls @ 100 mls/hr IV Q6H PRN PRN Reason: Nausea/Vomiting Lorazepam (Ativan) 2 mg IVPUSH Q4H PRN PRN Reason: Seizures Lorazepam (Ativan) 1 mg IV Q6H PRN PRN Reason: Nausea/Vomiting Magnesium Sulfate (Pharmacy To Dose - Magnesium Replacement) 0 dose .XX ASDIRECTED PRN PRN Reason: RX TO WATCH MAG LEVELS Metoprolol Tartrate (Lopressor) 5 mg IVPUSH Q4H PRN PRN Reason: Tachycardia Ondansetron HCl (Zofran) 4 mg IV Q6H PRN PRN Reason: Nausea/Vomiting Pantoprazole Sodium (Protonix) 40 mg PO Q12HR [facility] Potassium Chloride (Pharmacy To Dose - Potassium Replacement) 0 dose .XX ASDIRECTED PRN PRN Reason: RX TO WATCH K LEVELS Sodium Chloride (Saline Flush) 10 ml FLUSH ASDIRECTED PRN PRN Reason: Keep Vein Open Last Admin: 11/23/17 21:06 Dose: 10 ml Sucralfate (Carafate) 1 gm PO QIDACANDBED [facility] Temazepam (Restoril) 15 mg PO BEDTIME PRN PRN Reason: Sleep Discontinued Medications Sodium Chloride (Normal Saline) 1,000 mls @ 1,000 mls/hr IV .BOLUS STA Stop: 11/23/17 20:54 Last Admin: 11/23/17 20:25 Dose: 1,000 mls/hr Sodium Chloride (Normal Saline) 1,000 mls @ 100 mls/hr IV ASDIRECTED [facility] Last Admin: 11/23/17 21:39 Dose: 100 mls/hr Lidocaine HCl (Xylocaine-Mpf 1%) Confirm Administered Dose 4 mls @ as directed .ROUTE .STK-MED ONE Stop: 11/24/17 10:21 Midazolam HCl (Versed 1 Mg/Ml) Confirm Administered Dose 2 mg .ROUTE .STK-MED ONE Stop: 11/24/17 10:21 Ondansetron HCl (Zofran) 4 mg IVPUSH ONETIME ONE Stop: 11/23/17 19:56 Last Admin: 11/23/17 20:25 Dose: 4 mg Pantoprazole Sodium (Protonix Iv) 80 mg IVPUSH .BOLUS ONE Stop: 11/23/17 19:58 Last Admin: 11/23/17 20:27 Dose: 80 mg Pantoprazole Sodium (Protonix Iv) 40 mg IV Q12HR [facility] Last Admin: 11/24/17 09:43 Dose: Not Given Potassium Chloride (Klor-Con M20) 40 meq PO Q4H [facility] Stop: 11/24/17 09:01 Last Admin: 11/24/17 09:43 Dose: Not Given Propofol (Diprivan 20 Ml) Confirm Administered Dose 200 mg .ROUTE .STK-MED ONE Stop: 11/24/17 10:20 Sucralfate (Carafate) 1 gm PO ONETIME ONE Stop: 11/24/17 11:41 Last Admin: 11/24/17 11:56 Dose: 1 gm - Exam General: Reports: Alert, Oriented, Cooperative, No Acute Distress HEENT: Reports: Pupils Equal, Pupils Reactive, EOMI, Mucous Membr. Moist/Feather Sound Neck: Reports: Supple, Trachea Midline, No JVD, No Thyromegaly Lungs: Reports: Clear to Auscultation, Normal Respiratory Effort Cardiovascular: Reports: Regular Rate, Regular Rhythm GI/Abdominal Exam: Normal Bowel Sounds, Soft, Non-Tender, No Organomegaly, No Distention, No Abnormal Bruit, No Mass (Male) Exam: Deferred Rectal (Males) Exam: Deferred Back Exam: Reports: Normal Inspection, Full Range of Motion Extremities: Normal Inspection, Normal Range of Motion, Non-Tender, No Pedal Edema, Normal Capillary Refill Skin: Reports: Warm, Dry, Intact Psy/Mental Status: Reports: Alert, Normal Affect, Normal Mood
== END 2017-11-24 17:51 | disposition home or self-care (01) | DRG 241 ==
LOC: JD.ED 19:14 → JD.MS 11-24 00:27
PROVIDERS: ADMIT Internal Medicine; ATTEND Internal Medicine
PROC: 0DB68ZX Excision of Stomach, Via Natural or Artificial Opening Endoscopic, Diagnostic (ICD-10-PCS; principal; 2017-11-24)
DX: K26.3 Acute duodenal ulcer without hemorrhage or perforation (principal); K29.70 Gastritis, unspecified, without bleeding; B96.3 Hemophilus influenzae [H. influenzae] as the cause of diseases classified elsewhere; D62 Acute posthemorrhagic anemia; K29.80 Duodenitis without bleeding; E87.6 Hypokalemia; K92.1 Melena; Z88.8 Allergy status to other drugs, medicaments and biological substances; Z87.891 Personal history of nicotine dependence; Z87.11 Personal history of peptic ulcer disease
CPT/HCPCS: 00731; 36415; 74177; 74177-26; 80048; 80053; 81001; 83690; 83735; 85014; 85018; 85025; 86140; 86677; 96365; 96366; 96375; 96376; 99285-25; A9270-GY; C9113; J2001; J2250; J2405; J2704; J7030; J7040; J7050

== ENCOUNTER 2020-07-20 18:28 | Emergency (ER) | payer BC ==
--- NOTE | 2020-07-20 19:04 | EDM.PDOC ---
ED HPI GENERAL MEDICAL PROBLEM - General Chief Complaint: Cardiovascular Problem Stated Complaint: HIGH BP/LEFT ARM NUMBNESS Time Seen by Provider: 07/20/20 18:39 Source of Information: Reports: Patient, RN Notes Reviewed History Limitations: Reports: No Limitations - History of Present Illness INITIAL COMMENTS - FREE TEXT/NARRATIVE: Patient is a 34-year-old male who presents to the ED for evaluation of his elevated blood pressure readings at home, associated with left arm numbness. He notes that he has been working with [facility] for at least the last 6 months, to get his blood pressure under control. Blood pressure at time of triage is 125/95, and 141/100 respectively. Patient is in no visible distress. Patient notes for the last few days, he has felt more fatigued, and today he had a headache, with associated numbness/tingling in his left arm and shoulder and up into his jaw. He was complaining of some mild chest discomfort. He took some Tylenol, went home and rested and this seemed to go away. He is mainly concerned about the diastolic readings on his blood pressure machine. He notes that the headache has gotten better, he is having no pain into his left arm at this time. He notes over the last week, he has experienced chills but no fever, no cough or shortness of breath. Again he would note the chest pain as more of a chest pressure, that is transient, nothing really seems to make it better or worse. - Related Data Allergies Allergy/AdvReac Type Severity Reaction Status Date / Time codeine Allergy Rash Verified 07/20/20 18:37 Home Meds: Home Meds Losartan [Cozaar] 100 mg PO DAILY 07/20/20 [History] hydroCHLOROthiazide [Hydrochlorothiazide] 25 mg PO DAILY #7 tab 07/20/20 [Rx] Past Medical History Cardiovascular History: Reports: Hypertension Gastrointestinal History: Reports: GERD, Helicobacter Pylori, Other (See Below) Other Gastrointestinal History: previous episode of GI bleeding---diagnosed with a stomach ulcer at that time, but only labwork was done---no scope was performed at that time. Musculoskeletal History: Reports: Fracture Other Musculoskeletal History: left hand - Past Surgical History GI Surgical History: Reports: None Musculoskeletal Surgical History: Reports: Other (See Below) Other Musculoskeletal Surgeries/Procedures:: surgery to left arm---plates and screws inserted Social & Family History - Family History Family Medical History: No Pertinent Family History - Tobacco Use Tobacco Use Status *Q: Former Tobacco User Used Tobacco, but Quit: Yes Month/Year Tobacco Last Used: 5 years ago - Caffeine Use Caffeine Use: Reports: None - Recreational Drug Use Recreational Drug Use: No ED ROS GENERAL - Review of Systems Review Of Systems: Comprehensive ROS is negative, except as noted in HPI. ED EXAM, GENERAL - Physical Exam Exam: See Below Exam Limited By: No Limitations General Appearance: Alert, WD/WN, No Apparent Distress, Anxious (generalized) Eye Exam: Bilateral Eye: EOMI, Normal Inspection, PERRL Respiratory/Chest: No Respiratory Distress, Lungs Clear, Normal Breath Sounds, No Accessory Muscle Use, Chest Non-Tender Cardiovascular: Normal Peripheral Pulses, Regular Rate, Rhythm, No Edema Peripheral Pulses: 2+: Radial (L), Radial (R) GI/Abdominal: Normal Bowel Sounds, Soft, Non-Tender, No Distention, No Mass Extremities: Normal Inspection, Normal Capillary Refill Neurological: Alert, Oriented, Normal Cognition, No Motor/Sensory Deficits Psychiatric: Normal Affect, Normal Mood, Anxious (slight generalized) Skin Exam: Warm, Dry, Intact, Normal Color, No Rash #1 Interpretation EKG Date: 07/20/20 Time: 18:46 Rhythm: NSR Rate (Beats/Min): 89 [place]: Normal P-Wave: Present QRS: Normal ST-T: Normal QT: Normal Comparison: NA - No Prior EKG EKG Interpretation Comments: No obvious ischemia or acute ST changes noted, reviewed by myself and Dr. Jalloh. Course - Vital Signs Last Recorded V/S: Last Vital Signs Temp 98.1 F 07/20/20 18:39 Pulse 106 H 07/20/20 18:39 Resp 16 07/20/20 18:39 BP 125/95 H 07/20/20 18:39 Pulse Ox 99 07/20/20 18:39 - Orders/Labs/Meds Orders: Active Orders 24 hr Category Date Time Status EKG Documentation Completion [RC] STAT Care 07/20/20 18:58 Ordered Labs: Laboratory Tests 07/20/20 07/20/20 07/20/20 Range/Units 19:10 19:10 19:10 WBC 7.41 (4.23-9.07) K/mm3 RBC 4.65 (4.63-6.08) M/mm3 Hgb 14.9 (13.7-17.5) gm/dl Hct 43.1 (40.1-51.0) % MCV 92.7 H (79.0-92.2) fl MCH 32.0 (25.7-32.2) pg MCHC 34.6 (32.2-35.5) g/dl RDW Std Deviation 41.0 (35.1-43.9) fL Plt Count 244 (163-337) K/mm3 MPV 9.0 L (9.4-12.3) fl Neut % (Auto) 55.4 (34.0-67.9) % Lymph % (Auto) 36.0 (21.8-53.1) % Divide % (Auto) 6.6 (5.3-12.2) % Eos % (Auto) 1.6 (0.8-7.0) Baso % (Auto) 0.3 (0.1-1.2) % Neut # (Auto) 4.10 (1.78-5.38) K/mm3 Lymph # (Auto) 2.67 (1.32-3.57) K/mm3 Divide # (Auto) 0.49 (0.30-0.82) K/mm3 Eos # (Auto) 0.12 (0.04-0.54) K/mm3 Baso # (Auto) 0.02 (0.01-0.08) K/mm3 PT 10.6 (9.7-12.0) SECONDS INR 0.99 APTT 26.5 (21.7-31.4) SECONDS Sodium 137 (136-145) mEq/L Potassium 3.1 L (3.5-5.1) mEq/L Chloride 100 (98-107) mEq/L Carbon Dioxide 24 (21-32) mEq/L Anion Gap 16.1 H (5-15) BUN 16 (7-18) mg/dL Creatinine 1.0 (0.7-1.3) mg/dL Est Cr Clr Drug Dosing 110.86 mL/min Estimated GFR (MDRD) > 60 (>60) mL/min BUN/Creatinine Ratio 16.0 (14-18) Glucose 85 (74-106) mg/dL Calcium 9.3 (8.5-10.1) mg/dL Total Bilirubin 0.3 (0.2-1.0) mg/dL AST 24 (15-37) U/L ALT 44 (16-63) U/L Alkaline Phosphatase 45 L (46-116) U/L Troponin I < 0.017 (0.00-0.056) ng/mL Total Protein 7.7 (6.4-8.2) g/dl Albumin 4.1 (3.4-5.0) g/dl Globulin 3.6 gm/dL Albumin/Globulin Ratio 1.1 (1-2) - Re-Assessments/Exams Free Text/Narrative Re-Assessment/Exam: 07/20/20 19:03 Patient presents to the ED for his elevated blood pressure readings, with associated chest discomfort. EKG was obtained by triage nurse, demonstrates normal sinus rhythm with no ST segment abnormalities appreciated by myself or Dr. Jalloh. Basic labs will be obtained to evaluate the patient's chest pressure, I did explain to him that his blood pressure does look pretty good for today's purposes. If he should desire, I can order hydrochlorothiazide for outpatient management and have him follow-up with Bony Bennett next week, he verbalized understanding of this plan. 07/20/20 19:57 The patient's labs have been done, and everything is unremarkable, potassium is mildly low at 3.1, he can supplement this in his dietary intake. Departure - Departure Time of Disposition: 19:53 Disposition: Home, Self-Care 01 Condition: Good Clinical Impression: Sensation of chest pressure, Elevated blood pressure reading with diagnosis of hypertension Prescriptions: hydroCHLOROthiazide [Hydrochlorothiazide] 25 mg PO DAILY #7 tab Instructions: Managing Your Hypertension Referrals: Bony Bennett PA-C [Primary Care Provider] - Forms: ED Department Discharge Additional Instructions: You were evaluated in the ER today for your elevated blood pressure readings at home, feelings of fatigue, and chest pressure with associated left arm numbness/tingling. EKG, and laboratory evaluation done at this ER visit was pretty much unremarkable. Your potassium level was mildly low at 3.1, our cutoff for the low end of normal is 3.5. You may supplement your potassium with dietary intake, foods like bananas, and dark leafy greens like spinach are acceptable. Your systolic blood pressure was also within normal limits while being in the ER, however the diastolic pressure was just slightly elevated. Your body does have normal physiologic cycles of slightly elevated blood pressure throughout the day, and in times where you are experiencing increased stress, exerting your self physically, ETC. It is recommended that when you do check your blood pressure at home, that you do so in a calm restful state and that you have been sitting down for roughly 5 minutes prior to checking your blood pressure. You have been started on a medication called hydrochlorothiazide (or HCTZ), 25 mg once daily for further management of your blood pressure. If you start noticing that you are getting dizzy, lightheaded, or are having low blood pressure; after starting this medication, you may take 1/2 tablet of this medication rather than the full tablet. This medication is classified as a diuretic, so it will make you use the bathroom more. Please keep your appointment Bony Bennett next week, for reevaluation and further management. Please return to the ER at any time if your symptoms should change or worsen. Sepsis Event Note (ED) - Evaluation Sepsis Screening Result: No Definite Risk - Focused Exam Vital Signs: Vital Signs Temp Pulse Resp BP Pulse Ox 07/20/20 18:39 98.1 F 106 H 16 125/95 H 99 - My Orders Last 24 Hours: My Active Orders 07/20/20 18:58 EKG Documentation Completion [RC] STAT - Assessment/Plan Last 24 Hours: My Active Orders 07/20/20 18:58 EKG Documentation Completion [RC] STAT
== END 2020-07-20 20:10 | disposition home or self-care (01) ==
LOC: JD.ED 18:28
DX: I10 Essential (primary) hypertension (principal); Z88.5 Allergy status to narcotic agent; Z79.899 Other long term (current) drug therapy; Z87.891 Personal history of nicotine dependence
CPT/HCPCS: 36415; 80053; 84484; 85025; 85610; 85730; 93005; 93010; 99284; 99285-25

== ENCOUNTER 2023-01-25 10:04 | Emergency (ER) | payer BC, OTHER ==
[2023-01-25] MEDS ORDERED: Sodium Chloride 0.9% 10 ML Syringe FLUSH PRN (10:37)
[2023-01-25] MEDS ORDERED: Aspirin 81 MG Tab.Chew PO ONE (10:37)
[2023-01-25 10:49] LABS: BASOPHILS ABSOLUTE AUTO 0.03 K/mm3 (0.01-0.08); BASOPHILS PERCENT AUTO 0.2 % (0.1-1.2); EOSINOPHILS PERCENT AUTO 0 (0.8-7.0); HEMATOCRIT 42.8 % (40.1-51.0); HEMOGLOBIN 15.2 gm/dl (13.7-17.5); IMMATURE GRAN ABSOLUTE AUTO 0.15 K/mm3 (0.00-0.10); IMMATURE GRAN PERCENT AUTO 0.8 % (<=1.0); LYMPHOCYTES ABSOLUTE AUTO 1.51 K/mm3 (1.32-3.57); LYMPHOCYTES PERCENT AUTO 7.8 % (21.8-53.1); MEAN CORPUSCULAR HEMOGLOBIN 32.8 pg (25.7-32.2); MEAN CORPUSCULAR HGB CONC 35.5 g/dl (32.2-35.5); MEAN CORPUSCULAR VOLUME 92.2 fl (79.0-92.2); MEAN PLATELET VOLUME 9.3 fl (9.4-12.3); MONOCYTES PERCENT AUTO 6.8 % (5.3-12.2); NEUTROPHILS ABSOLUTE AUTO 16.25 K/mm3 (1.78-5.38); NEUTROPHILS PERCENT AUTO 84.4 % (34.0-67.9); PLATELET COUNT,PLT 242 K/mm3 (163-337); RED BLOOD CELL COUNT 4.64 M/mm3 (4.63-6.08); WHITE BLOOD CELL COUNT,WBC 19.24 K/mm3 (4.23-9.07)
[2023-01-25 11:04] LABS: A/G RATIO 0.8 (1-2); ALBUMIN 3.7 g/dl (3.4-5.0); ANION GAP 17.1 (5-15); BILIRUBIN TOTAL 1.1 mg/dL (0.2-1.0); BUN/CREATININE RATIO 10.5 (14-18); CALCIUM 9.3 mg/dL (8.5-10.1); CREATININE 1.9 mg/dL (0.7-1.3); EST CRCL DRUG DOSING (CG) 56.7 mL/min; POTASSIUM,K 3.1 mEq/L (3.5-5.1); PROTEIN TOTAL,TP 8.3 g/dl (6.4-8.2)
[2023-01-25] MEDS ORDERED: Sodium Chloride 0.9% 1,000 ML IV ONE (11:25)
[2023-01-25 11:47] LABS: SLIDE REVIEW ABNORMAL SMEAR
[2023-01-25] MEDS ORDERED: cefTRIAXone 1 GM in Sodium Chloride 0.9% 100 ML IV ONE (12:06)
== END 2023-01-25 13:48 | disposition home or self-care (01) ==
LOC: JD.ED 10:04
DX: E86.0 Dehydration (principal); N28.9 Disorder of kidney and ureter, unspecified; E87.6 Hypokalemia; I10 Essential (primary) hypertension; Z86.16 Personal history of COVID-19; Z88.5 Allergy status to narcotic agent
CPT/HCPCS: 36415; 71045; 80053; 84484; 85025; 85379; 93005; 96361; 96365; 99285; A9270; J0696; J3490; J7030; 93010; 99283